=== PATIENT | male | born 1960 | race Hispanic/Latino ===

== ENCOUNTER 2017-02-07 22:47 | Observation (INO) | payer OTHER ==
[2017-02-07 22:47] VITALS: BMI 33.3
--- NOTE | 2017-02-07 23:25 | ED PDOC ---
Arrival/HPI - General Chief Complaint: Alcohol Ingestion Time Seen by Provider: 02/07/17 23:04 Historian: Patient, EMS - History of Present Illness Narrative History of Present Illness (Text): 02/07/17 23:15 Malvin Shelley is a 56 year old male who presents to the Emergency department brought in by EMS for public intoxication. Patient was found outside inebriated by police. Patient admits to drinking alcohol tonight. Patient denies any fever, chills, chest pain, shortness of breath, nausea, vomiting, diarrhea, urinary symptoms, back pain, neck pain, headache, dizziness, or any other complaints. Time/Duration: Other (tonight) Symptom Onset: Gradual Symptom Course: Unchanged Activities at Onset: Rest, Light Context: Street Past Medical History - Provider Review Nursing Documentation Reviewed: Yes - Infectious Disease Hx of Infectious Diseases: None - Cardiac Hx Cardiac Disorders: Yes Hx Hypertension: Yes - Pulmonary Hx Respiratory Disorders: Yes Hx Chronic Obstructive Pulmonary Disease (COPD): Yes - Hematological/Oncological Hx Blood Disorders: Yes (POOR HEALING FACTORS PER PT) - Musculoskeletal/Rheumatological Hx Musculoskeletal Disorders: Yes Other/Comment: rotator cuff tear left shoulder - Psychiatric Hx Substance Use: No - Surgical History Hx Appendectomy: Yes Hx Orthopedic Surgery: Yes (RIGHT KNEE DUE TO TRAUMA) - Anesthesia Hx Anesthesia: Yes Hx Anesthesia Reactions: No Hx Malignant Hyperthermia: No Family/Social History - Physician Review Nursing Documentation Reviewed: Yes Family/Social History: No Known Family HX Smoking Status: Former Smoker Hx Alcohol Use: No Hx Substance Use: No Allergies/Home Meds Allergies/Adverse Reactions: Allergies No Known Allergies Allergy (Verified 08/08/15 00:25) Home Medications: Home Meds Medication Instructions Recorded Confirmed Amlodipine Besylate/Ol[place]art [[place] 1 tab PO DAILY 07/22/15 08/08/15 5 mg-40 mg] Rosuvastatin Calcium [Crestor] 10 mg PO DAILY 07/22/15 08/08/15 Review of Systems - Physician Review All systems were reviewed & negative as marked: Yes - Review of Systems Constitutional: Normal. absent: Fevers Eyes: Normal ENT: Normal Respiratory: Normal. absent: SOB, Cough Cardiovascular: Normal. absent: Chest Pain Gastrointestinal: Normal. absent: Abdominal Pain, Diarrhea, Nausea, Vomiting Genitourinary Male: Normal. absent: Dysuria, Frequency, Hematuria, Urinary Output Changes Musculoskeletal: Normal. absent: Back Pain, Neck Pain Skin: Normal. absent: Rash Neurological: Normal. absent: Headache, Dizziness Endocrine: Normal Hemo/Lymphatic: Normal Psychiatric: Other (+alcohol intoxication) Physical Exam Vital Signs Reviewed: Yes Vital Signs Temp Pulse Resp BP Pulse Ox 02/07/17 22:47 97.8 F 68 18 145/76 98 Temperature: Afebrile Blood Pressure: Normal Pulse: Regular Respiratory Rate: Normal Appearance: Positive for: Well-Appearing, Non-Toxic, Comfortable Pain Distress: None Mental Status: Positive for: Alert and Oriented X 3 - Systems Exam Head: Present: Atraumatic, Normocephalic Pupils: Present: PERRL Extroacular Muscles: Present: EOMI Conjunctiva: Present: Normal Mouth: Present: Moist Mucous Membranes Neck: Present: Normal Range of Motion Respiratory/Chest: Present: Clear to Auscultation, Good Air Exchange. No: Respiratory Distress, Accessory Muscle Use Cardiovascular: Present: Regular Rate and Rhythm, Normal S1, S2. No: Murmurs Abdomen: Present: Normal Bowel Sounds. No: Tenderness, Distention, Peritoneal Signs Back: Present: Normal Inspection Upper Extremity: Present: Normal Inspection, Normal ROM, Neurovascularly Intact , Other (abrasion left forearm). No: Cyanosis, Edema, Tenderness Lower Extremity: Present: Normal Inspection. No: Edema Neurological: Present: GCS=15, CN II-XII Intact, Speech Normal Skin: Present: Warm, Dry, Normal Color. No: Rashes Psychiatric: Present: Alert, Oriented x 3, Normal Insight, Normal Concentration Medical Decision Making ED Course and Treatment: 02/07/17 23:15 Impression: 56 year old male brought in for alcohol intoxication. Differential Diagnosis include but are not limited to: alcohol intoxication Plan: -- Reassess and disposition ED OBSERVATION Discharge: Yes Date of observation admission: 02/07/17 Time of observation admission: 23:15 - Observation admission statement Patient is being placed in observation because:: alcohol intoxication - Goals of Observation Goals of observation are:: observe for signs of withdrawal, sobriety - Progress Note Progress Note: 02/07/17 23:15 Pt brought in for alcohol intoxication. Will observe pending sobriety. 02/08/17 00:34 Pt resting comfortably, in no acute distress. Family present at bedside. Pt discharged to custody of family. - Scribe Statement The provider has reviewed the documentation as recorded by the Scribe Radha Dumont All medical record entries made by the Scribe were at my direction and personally dictated by me. I have reviewed the chart and agree that the record accurately reflects my personal performance of the history, physical exam, medical decision making, and the department course for this patient. I have also personally directed, reviewed, and agree with the discharge instructions and disposition. Disposition/Present on Arrival - Present on Arrival Any Indicators Present on Arrival: No History of DVT/PE: No History of Uncontrolled Diabetes: No Urinary Catheter: No History of Decub. Ulcer: No History Surgical Site Infection Following: None - Disposition Have Diagnosis and Disposition been Completed?: Yes Diagnosis: Alcohol intoxication Disposition: HOME/ ROUTINE Disposition Time: 00:35 Patient Plan: Discharge Patient Problems: Current Active Problems Problem Status Onset Alcohol intoxication Acute Condition: GOOD
[2017-02-08 04:37] VITALS: BP 130/81; PULSE 99; RESP 16; TEMP 98.8; O2SAT 99
== END 2017-02-08 02:32 | disposition home or self-care (01) ==
LOC: ED 22:47 → EROBSV 23:15
PROVIDERS: ADMIT Emergency Medicine; ATTEND Emergency Medicine
DX: F10.129 Alcohol abuse with intoxication, unspecified (principal)
CPT/HCPCS: 99283; G0378

== ENCOUNTER 2018-04-13 09:27 | Day surgery (SDC) | payer OTHER ==
[2018-04-09 08:15] VITALS: BMI 34.9
[~2018-04-13 09:27] MED LIST: Sodium Chloride 0.9% 1,000 ML IV SCH
[2018-04-13 10:23] VITALS: TEMP 98.2
[2018-04-13] MEDS ORDERED: Lidocaine 1% Inj (20ml) ONE (11:59)
[2018-04-13] MEDS ORDERED: Propofol 10 mg/ml Inj (20 ML) ONE (11:59)
[2018-04-13] MEDS ORDERED: Sodium Chloride 0.9% 1,000 ML IV SCH (12:45)
[2018-04-13 13:05] VITALS: RESP 16; O2SAT 99
[2018-04-13 13:51] VITALS: BP 103/59; PULSE 72
== END 2018-04-13 14:00 | disposition home or self-care (01) ==
LOC: ENDO 09:27
PROVIDERS: ATTEND Internal Medicine Gastroenterology
DX: Z12.11 Encounter for screening for malignant neoplasm of colon (principal); D12.7 Benign neoplasm of rectosigmoid junction; D12.5 Benign neoplasm of sigmoid colon; K62.1 Rectal polyp; K64.8 Other hemorrhoids; I10 Essential (primary) hypertension; E78.00 Pure hypercholesterolemia, unspecified; E78.5 Hyperlipidemia, unspecified; F17.210 Nicotine dependence, cigarettes, uncomplicated
CPT/HCPCS: 45380; 45385; 88305; J2704; J7030; J7040

== ENCOUNTER 2019-01-20 14:04 | Emergency (ER) | payer OTHER ==
[2019-01-20 14:05] VITALS: BMI 34.9
[2019-01-20 14:15] VITALS: RESP 18
--- NOTE | 2019-01-20 14:56 | ED PDOC ---
Arrival/HPI - General Chief Complaint: Lower Extremity Problem/Injury Time Seen by Provider: 01/20/19 14:11 Historian: Patient, Spouse () - History of Present Illness Narrative History of Present Illness (Text): 01/20/19 14:52 A 58 year old male, whose past medical history includes hypertension and hyperlipidemia, who is accompanied by , presents to the emergency department complaining of left hip pain starting yesterday. Patient reports he awoke yesterday with the sudden pain, radiating down left thigh. Denies any heavy lifting or any fall/trauma. Patient denies any other complaints at this time. PMD: Dr. Smith Time/Duration: 24 hours Past Medical History - Provider Review Nursing Documentation Reviewed: Yes Primary Care Physician: Kate Smith MD - Infectious Disease Hx of Infectious Diseases: None - Cardiac Hx Pacemaker: No - Pulmonary Hx Respiratory Disorders: Yes Hx Chronic Obstructive Pulmonary Disease (COPD): Yes - Hematological/Oncological Hx Blood Transfusions: No Hx Blood Transfusion Reaction: No - Musculoskeletal/Rheumatological Hx Musculoskeletal Disorders: No - Psychiatric Hx Physical Abuse: No Hx Substance Use: No - Surgical History Other/Comment: left shoulder sx 4 yrs ago - Anesthesia Hx Anesthesia: Yes Hx Anesthesia Reactions: Yes Hx Malignant Hyperthermia: No - Suicidal Assessment Feels Threatened In Home Enviroment: No Family/Social History - Physician Review Nursing Documentation Reviewed: Yes Family/Social History: No Known Family HX Smoking Status: Former Smoker Hx Alcohol Use: Yes (SOCIALLY) Hx Substance Use: No Allergies/Home Meds Allergies/Adverse Reactions: Allergies No Known Allergies Allergy (Verified 01/20/19 14:14) Home Medications: Home Meds Medication Instructions Recorded Confirmed Amlodipine Besylate/[place] [[place] 1 tab PO DAILY 07/22/15 01/20/19 5 mg-40 mg] Rosuvastatin Calcium [Crestor] 10 mg PO DAILY 07/22/15 01/20/19 Review of Systems - Physician Review All systems were reviewed & negative as marked: Yes - Review of Systems Constitutional: absent: Other (no fall/trauma) Musculoskeletal: Other (left hip pain) Physical Exam Vital Signs Reviewed: Yes Vital Signs Temp Pulse Resp BP Pulse Ox 01/20/19 14:10 98 F 76 18 135/89 96 Temperature: Afebrile Blood Pressure: Normal Pulse: Regular Respiratory Rate: Normal Appearance: Positive for: Well-Appearing, Non-Toxic, Comfortable Pain Distress: None Mental Status: Positive for: Alert and Oriented X 3 - Systems Exam Head: Present: Atraumatic, Normocephalic Neck: Present: Normal Range of Motion Respiratory/Chest: Present: Clear to Auscultation, Good Air Exchange. No: Respiratory Distress, Accessory Muscle Use Cardiovascular: Present: Regular Rate and Rhythm, Normal S1, S2. No: Murmurs Abdomen: No: Tenderness, Distention, Peritoneal Signs Back: Present: Normal Inspection Upper Extremity: Present: Normal Inspection. No: Cyanosis, Edema Lower Extremity: Present: Tenderness (left hip) Neurological: Present: GCS=15, CN II-XII Intact, Speech Normal Skin: Present: Warm, Dry, Normal Color. No: Rashes Psychiatric: Present: Alert, Oriented x 3, Normal Insight, Normal Concentration Medical Decision Making ED Course and Treatment: 01/20/19 15:01 Impression: 58 year old male with left hip pain radiating down left thigh. Plan: -- Left Hip X-Ray -- Lower Extremity Ultrasound -- Toradol -- Reassess and disposition Progress Notes: 01/20/2019 14:50 Left Hip X-Ray IMPRESSION: No demonstrated fracture or dislocation. Dictator: Akira Cordova MD 01/20/19 18:00 consider bursitis, itb, dvt study neg.xr neg. pt ambulatory normal rom. no erytehma warmth. no fever. unlikely septic joint. - RAD Interpretation Radiology Orders: 01/20/19 14:42 HIP MIN 4V W/ PELVIS LT [RAD] Stat DUPLEX LOWER EXTRM VEIN LEFT [US] Stat - Medication Orders Current Medication Orders: Discontinued Medications Ketorolac Tromethamine (Toradol) 30 mg IM STAT STA Stop: 01/20/19 14:43 - Scribe Statement The provider has reviewed the documentation as recorded by the Domenica Bill Provider Scribe Attestation: All medical record entries made by the Scribe were at my direction and personally dictated by me. I have reviewed the chart and agree that the record accurately reflects my personal performance of the history, physical exam, medical decision making, and the department course for this patient. I have also personally directed, reviewed, and agree with the discharge instructions and disposition. Disposition/Present on Arrival - Present on Arrival Any Indicators Present on Arrival: No History of DVT/PE: No History of Uncontrolled Diabetes: No Urinary Catheter: No History of Decub. Ulcer: No History Surgical Site Infection Following: None - Disposition Have Diagnosis and Disposition been Completed?: Yes Diagnosis: Hip pain Disposition: HOME/ ROUTINE Disposition Time: 17:00 Patient Problems: Current Active Problems Problem Status Onset Hip pain Acute Condition: STABLE Discharge Instructions (ExitCare): Hip Pain Additional Instructions: return to er with worsening symptoms or concerns. Prescriptions: Naproxen 500 mg PO BID PRN #14 tablet PRN Reason: Pain, Mild (1-3) Referrals: Fer Gandhi DO [Staff Provider] - Follow up with primary Kate Cunningham MD [Primary Care Provider] - Follow up with primary Forms: [employer] ([place])
--- NOTE | 2019-01-20 17:47 | RAD ---
PROCEDURE: Left Hip X-ray Radiographs. HISTORY: pain COMPARISON: Pelvis radiographs dated 06/28/2017. TECHNIQUE: 2 views obtained. FINDINGS: BONES: No acute fracture. JOINTS: Normal. SOFT TISSUES: Normal. OTHER FINDINGS: None. IMPRESSION: No demonstrated fracture or dislocation.
[2019-01-20 17:59] VITALS: BP 131/88; PULSE 74; TEMP 98.1; O2SAT 99
--- NOTE | 2019-01-21 09:36 | US ---
PROCEDURE: Left lower extremity venous US HISTORY: Leg pain and swelling. Evaluate for DVT. PHYSICIAN(S): Jesús Shipley MD. TECHNIQUE: Duplex sonography and color-flow Doppler with graded compression were used to evaluate the deep venous system of the left lower extremity. FINDINGS: The visualized deep venous system of the left lower extremity is sonographically normal and compressible. Normal wave forms and augmentation are seen. There is no sonographic evidence for deep venous thrombosis in the visualized segments of the left lower extremity. IMPRESSION: 1. No sonographic evidence for deep venous thrombosis in the visualized segments of the left lower extremity.
== END 2019-01-20 18:10 | disposition home or self-care (01) ==
LOC: ED 14:04
DX: M25.552 Pain in left hip (principal); I10 Essential (primary) hypertension; E78.5 Hyperlipidemia, unspecified; Z87.891 Personal history of nicotine dependence
CPT/HCPCS: 73502; 93971; 96372; 99283; J1885